=== PATIENT | male | born 1990 | race Two or more races ===

== ENCOUNTER 2020-06-16 16:29 | Emergency (ER) | payer MEDICAID, OTHER ==
[~2020-06-16] VITALS: Ht 177.8 cm; Wt 83.9 kg
[2020-06-16] MEDS ORDERED: HYDROcodone-ACET 5/325MG TAB PO ONE (18:45)
[2020-06-16 21:02] LABS: Basophils # (auto) 0 10 ^3/uL (0-0.2); Basophils % (auto) 0.2 % (0.0-2.0); Eosinophils # (auto) 0.1 10 ^3/uL (0-0.8); Eosinophils % (auto) 0.8 % (0.0-7.0); Hematocrit 45.6 % (41.0-53.0); Lymphocytes # (auto) 2.1 10 ^3/uL (0.4-5.4); Lymphocytes % (auto) 16.1 % (10.0-50.0); Mean Corpuscular Hemoglobin 31.8 pg (28.0-32.0); Mean Corpuscular Hgb Conc. 35.2 g/dL (32.0-36.0); Mean Corpuscular Volume 90.3 fL (80.0-100.0); Monocytes # (auto) 0.9 10 ^3/uL (0-1.3); Monocytes % (auto) 6.9 % (0.0-12.0); Neutrophils # (auto) 9.7 10 ^3/uL (1.6-8.6); Platelet Count (auto) 226 10^3/uL (140-450); Red Blood Cells 5.05 10^6/uL (4.5-5.90); Red Cell Distribution Width 13.4 % (11.8-14.3); White Blood Cell 12.7 10^3/uL (4.4-10.8)
[2020-06-16 21:18] LABS: Albumin 4.1 g/dL (3.4-5.0); BUN/Creatinine Ratio 18.4; Potassium 4.6 mmol/L (3.5-5.1)
[2020-06-16 21:21] LABS: Bilirubin, Total 0.8 mg/dL (0.2-1.0); INR 0.97 (0.9-1.15); Partial Thromboplastin Time 25.9 sec (23.0-31.2); Total Protein 8.4 g/dL (6.4-8.2)
[2020-06-17 03:48] VITALS: BP 128/78
== END 2020-06-17 04:28 | disposition home or self-care (01) ==
LOC: ER 16:29
DX: S82.452A Displaced comminuted fracture of shaft of left fibula, initial encounter for closed fracture (principal); V03.90XA Pedestrian on foot injured in collision with car, pick-up truck or van, unspecified whether traffic or nontraffic accident, initial encounter; Y93.89 Activity, other specified; Y92.488 Other paved roadways as the place of occurrence of the external cause; Y99.8 Other external cause status
CPT/HCPCS: 36415; 73590; 80053; 85025; 85610; 85730; 86850; 86900; 86901